=== PATIENT | male | born 1945 | race Caucasian/White ===

== ENCOUNTER 2016-07-14 00:22 | Emergency (ER) | payer MEDICARE, OTHER ==
--- NOTE | 2016-07-14 00:56 | EDM.PDOC ---
[id number] Complaint: [facility] Time Seen by Provider: 07/14/16 00:50 Source of Information: Reports: Patient History Limitations: Reports: No Limitations - History of Present Illness INITIAL COMMENTS - FREE TEXT/NARRATIVE: pt states abut 10 45 the pt began to have slurred speech and is having difficulty expressing himself/ He also noted that he had numbness in his rt arm and was having some difficulty coordinating his arm. Onset: Today, Sudden Duration: Hour(s):, Other ( started at 10 45) Location: Reports: Other ( speech wa affected and he had difficulty coordinating his rt arm. ) Associated Symptoms: Reports: Other (pt is having speech difficulty and he is having problems coordinating his rt arm. ) denies pain Pain Score (Numeric/FACES): 0 - Related Data Allergies Allergy/AdvReac Type Severity Reaction Status Date / Time codeine Allergy Headache Verified 07/14/16 00:35 hydroxyzine HCl Allergy Change Verified 07/14/16 00:35 [From Vistaril] Mental Status hydroxyzine pamoate Allergy Change Verified 07/14/16 00:35 [From Vistaril] Mental Status Home Meds: Home Meds ALPRAZolam [Alprazolam] 0.25 mg PO QAM 08/27/14 [History] Allopurinol [Zyloprim] 300 mg PO BEDTIME 08/27/14 [History] Aspirin [Eddie Chewable] 81 mg PO QAM 08/27/14 [History] Citalopram Hydrobromide [Celexa] 10 mg PO QAM 08/27/14 [History] Clopidogrel [Plavix] 75 mg PO BEDTIME 08/27/14 [History] Furosemide [Lasix] 40 mg PO QAM 08/27/14 [History] Metoprolol Tartrate [Lopressor] 50 mg PO BID 08/27/14 [History] Tamsulosin [Tamsulosin 24 Hr] 0.4 mg PO QAM 08/27/14 [History] atorvaSTATin [Lipitor] 80 mg PO BEDTIME 08/27/14 [History] Glimepiride [Glimepiride] 1 mg PO BID 08/21/15 [History] Levothyroxine [Synthroid] 100 mcg PO QAM 08/21/15 [History] Past Medical History Other HEENT History: hardache today recent again ? TIA Cardiovascular History: Reports: Arrhythmia, High Cholesterol, Hypertension, [place] , Stents Other Cardiovascular History: stunt x2 Other Gastrointestinal History: nausea Genitourinary History: Reports: Chronic Renal Insuffiency, Other (See Below) Other Genitourinary History: self cath 3X aday, stage 3 CKD Other Musculoskeletal History: L knee surgery L knee replacement Neurological History: Reports: CVA, TIA Other Neuro History: family member ? TIA one week ago Psychiatric History: Reports: Anxiety, Depression Endocrine/Metabolic History: Reports: Diabetes, Type II, Hypothyroidism, Obesity /BMI 30+ Oncologic (Cancer) History: Reports: Basal Cell Carcinoma Other Dermatologic History: skin cancer - Past Surgical History Cardiovascular Surgical History: Reports: Coronary Artery Stent Musculoskeletal Surgical History: Reports: Arthroscopic Knee, Other (See Below) Social & Family History - Tobacco Use Smoking Status *Q: Never Smoker - Recreational Drug Use Recreational Drug Use: No ED ROS GENERAL - Review of Systems Review Of Systems: See Below Constitutional: Reports: No Symptoms HEENT: Reports: No Symptoms Respiratory: Reports: No Symptoms Cardiovascular: Reports: No Symptoms Endocrine: Reports: No Symptoms GI/Abdominal: Reports: No Symptoms : Reports: No Symptoms Musculoskeletal: Reports: No Symptoms Skin: Reports: No Symptoms Neurological: Reports: Trouble Speaking, Change in Speech, Other ( some weakness in the rt arm) Psychiatric: Reports: No Symptoms ED EXAM, NEURO - Physical Exam Exam: See Below Text/Narrative:: pt has slurring of his speech and difficult time coming up with the words to express himself. Exam Limited By: No Limitations General Appearance: Alert, Anxious, Mild Distress, Other (pupils are equal and reactive. ) Ears: Normal External Exam Nose: Normal Inspection Throat/Mouth: Normal Inspection, Other ( pt has no facial deviation) Neck: Normal Inspection Respiratory/Chest: No Respiratory Distress Cardiovascular: Regular Rate, Rhythm GI/Abdominal: Soft, Non-Tender (Male) Exam: Deferred Rectal (Males) Exam: Deferred Neurological: Alert, Oriented x 3, Other (pt is slurring his words and can not express himself at times.e is having some weakness in the rt arm. ) Back Exam: Normal Inspection Extremities: Normal Inspection Psychiatric: Anxious Course - Vital Signs Last Recorded V/S: Last Vital Signs Temp 36.6 C 07/14/16 00:57 Pulse 74 07/14/16 01:35 Resp BP 142/76 H 07/14/16 01:35 Pulse Ox 97 07/14/16 01:35 - Orders/Labs/Meds Labs: Laboratory Tests 07/14/16 07/14/16 07/14/16 Range/Units 00:46 00:46 00:46 WBC 12.1 H (4.5-11.0) K/uL RBC 4.35 (4.30-5.90) M/uL Hgb 12.0 (12.0-15.0) g/dL Hct 37.7 L (40.0-54.0) % MCV 87 (80-98) fL MCH 28 (27-31) pg MCHC 32 (32-36) % Plt Count 231 (150-400) K/uL Neut % (Auto) 70 H (36-66) % Lymph % (Auto) 17 L (24-44) % [place] % (Auto) 8 H (2-6) % Eos % (Auto) 5 H (2-4) % Baso % (Auto) 0 (0-1) % APTT 29.9 (27.0-36.0) sec Sodium 142 (140-148) mmol/L Potassium 3.8 (3.6-5.2) mmol/L Chloride 106 (100-108) mmol/L Carbon Dioxide 25 (21-32) mmol/L Anion Gap 10.7 (5.0-14.0) mmol/L BUN 23 H (7-18) mg/dL Creatinine 1.8 H (0.8-1.3) mg/dL Est Cr Clr Drug Dosing 46.21 mL/min Estimated GFR (MDRD) 37 L (>60) Glucose 152 H (74-106) mg/dL Calcium 7.7 L (8.5-10.1) mg/dL Total Bilirubin 0.4 (0.2-1.0) mg/dL AST 26 (15-37) U/L ALT 41 (12-78) U/L Alkaline Phosphatase 171 H (46-116) U/L Troponin I (0.000-0.056) ng/mL Total Protein 6.2 L (6.4-8.2) g/dL Albumin 2.8 L (3.4-5.0) g/dL Globulin 3.4 (2.3-3.5) g/dL Albumin/Globulin Ratio 0.8 L (1.2-2.2) TSH, Ultra Sensitive (0.358-3.740) uIU/mL Urine Color Urine Appearance Urine pH (4.5-8.0) Ur Specific Holl[place] (1.008-1.030) Urine Protein (NEGATIVE) mg/dL Urine Glucose (UA) (NEGATIVE) mg/dL Urine Ketones (NEGATIVE) mg/dL Urine Occult Blood (NEGATIVE) Urine Nitrite (NEGAITVE) Urine Bilirubin (NEGATIVE) Urine Urobilinogen (NORMAL) mg/dL Ur Leukocyte Esterase (NEGATIVE) Urine RBC (0-5) Urine WBC (0-5) Ur Epithelial Cells Amorphous Sediment Urine Bacteria Urine Mucus 07/14/16 07/14/16 Range/Units 00:46 01:15 WBC (4.5-11.0) K/uL RBC (4.30-5.90) M/uL Hgb (12.0-15.0) g/dL Hct (40.0-54.0) % MCV (80-98) fL MCH (27-31) pg MCHC (32-36) % Plt Count (150-400) K/uL Neut % (Auto) (36-66) % Lymph % (Auto) (24-44) % [place] % (Auto) (2-6) % Eos % (Auto) (2-4) % Baso % (Auto) (0-1) % APTT (27.0-36.0) sec Sodium (140-148) mmol/L Potassium (3.6-5.2) mmol/L Chloride (100-108) mmol/L Carbon Dioxide (21-32) mmol/L Anion Gap (5.0-14.0) mmol/L BUN (7-18) mg/dL Creatinine (0.8-1.3) mg/dL Est Cr Clr Drug Dosing mL/min Estimated GFR (MDRD) (>60) Glucose (74-106) mg/dL Calcium (8.5-10.1) mg/dL Total Bilirubin (0.2-1.0) mg/dL AST (15-37) U/L ALT (12-78) U/L Alkaline Phosphatase (46-116) U/L Troponin I < 0.017 (0.000-0.056) ng/mL Total Protein (6.4-8.2) g/dL Albumin (3.4-5.0) g/dL Globulin (2.3-3.5) g/dL Albumin/Globulin Ratio (1.2-2.2) TSH, Ultra Sensitive 2.965 (0.358-3.740) uIU/mL Urine Color Yellow Urine Appearance Clear Urine pH 5.0 (4.5-8.0) Ur Specific [place] 1.010 (1.008-1.030) Urine Protein Negative (NEGATIVE) mg/dL Urine Glucose (UA) Normal (NEGATIVE) mg/dL Urine Ketones Negative (NEGATIVE) mg/dL Urine Occult Blood Negative (NEGATIVE) Urine Nitrite Negative (NEGAITVE) Urine Bilirubin Negative (NEGATIVE) Urine Urobilinogen Normal (NORMAL) mg/dL Ur Leukocyte Esterase Small (NEGATIVE) Urine RBC 0-5 (0-5) Urine WBC 5-10 H (0-5) Ur Epithelial Cells Rare Amorphous Sediment Few Urine Bacteria Moderate Urine Mucus Not seen Meds: Medications Discontinued Medications Generic Name Dose Route Start Last Admin Trade Name Kieranq PRN Reason Stop Dose Admin Lidocaine HCl 10 ml 07/14/16 01:00 07/14/16 01:03 Xylocaine 2% Jelly MUCMEM 07/14/16 01:01 10 ml ONETIME ONE Administration - Re-Assessments/Exams Free Text/Narrative Re-Assessment/Exam: 07/14/16 01:22 vitals seem stable, ekg does not show acute changes, cat scn of the head did not show acute changes. 07/15/16 07:45 pt is having some improvement in his speech after arival. His cat scan of the head did not show acute findings. he has had a previous stroke. Departure - Departure Time of Disposition: 01:24 Disposition: DC/Tfer to Acute Hospital 02 Condition: fair Clinical Impression: Stroke due to embolism - Discharge Information Referrals: PCP,None [Primary Care Provider] - Forms: ED Department Discharge Care Plan Goals: transfer to [facility] -- ER.
[2016-07-14] MEDS ORDERED: Lidocaine 2% Jelly 10 ML Urojet MUCMEM ONE (01:00)
[2016-07-14 01:36] VITALS: BP 142/76
== END 2016-07-14 01:55 ==
LOC: JP.ED 00:22
DX: I63.40 Cerebral infarction due to embolism of unspecified cerebral artery (principal); I12.9 Hypertensive chronic kidney disease with stage 1 through stage 4 chronic kidney disease, or unspecified chronic kidney disease; N18.3 Chronic kidney disease, stage 3 (moderate); E11.22 Type 2 diabetes mellitus with diabetic chronic kidney disease; I25.2 Old myocardial infarction; E78.00 Pure hypercholesterolemia, unspecified; E03.9 Hypothyroidism, unspecified; F41.9 Anxiety disorder, unspecified; F32.9 Major depressive disorder, single episode, unspecified; E66.9 Obesity, unspecified; Z68.30 Body mass index [BMI] 30.0-30.9, adult; Z88.5 Allergy status to narcotic agent; Z88.8 Allergy status to other drugs, medicaments and biological substances; Z79.82 Long term (current) use of aspirin; Z79.899 Other long term (current) drug therapy; Z95.5 Presence of coronary angioplasty implant and graft; Z96.652 Presence of left artificial knee joint; Z85.828 Personal history of other malignant neoplasm of skin
CPT/HCPCS: 36415; 51702; 70450; 80053; 81001; 84443; 84484; 85025; 85730; 93005; 93010; 99285; 99285-25

== ENCOUNTER 2019-08-18 17:56 | Emergency (ER) | payer MEDICARE, BC ==
[2019-08-18 19:19] VITALS: BP 163/72; PULSE 68
[2019-08-18] MEDS ORDERED: Silver Nitrate Applicator Each TOP ONE (19:46)
[2019-08-18] MEDS ORDERED: Bacitracin Oint 1 GM U/D Packet TOP ONE (19:48)
--- NOTE | 2019-08-18 19:53 | EDM.PDOC ---
ED HPI GENERAL MEDICAL PROBLEM - General Chief Complaint: Wound Recheck Stated Complaint: SMALL TOE RT FOOT BLEEDING Time Seen by Provider: 08/18/19 19:35 Source of Information: Reports: Patient History Limitations: Reports: No Limitations - History of Present Illness INITIAL COMMENTS - FREE TEXT/NARRATIVE: 74 yo male here with a skin tear to the top of his R 5th toe that has been oozing on and off for a couple days. Is on Plavix/ASA. Lives in area 6 mos/yr, but no local doctor. Onset: Gradual Onset Date: 08/16/19 Duration: Day(s): (2+), Intermittent Location: Reports: Lower Extremity, Right Quality: Reports: Dull Severity: Mild Improves with: Reports: None Worsens with: Reports: Other (unsure) Context: Reports: Trauma (skin tear) Associated Symptoms: Reports: No Other Symptoms Treatments [employer]: Reports: Other (see below) (none) - Related Data Allergies Allergy/AdvReac Type Severity Reaction Status Date / Time codeine AdvReac Headache Verified 08/18/19 19:08 hydroxyzine HCl AdvReac Change Verified 08/18/19 19:08 [From Vistaril] Mental Status hydroxyzine pamoate AdvReac Change Verified 08/18/19 19:08 [From Vistaril] Mental Status Home Meds: Home Meds ALPRAZolam [Alprazolam] 0.25 mg PO QAM 08/27/14 [History] Aspirin [Eddie Chewable] 81 mg PO QAM 08/27/14 [History] Citalopram Hydrobromide [Celexa] 10 mg PO QAM 08/27/14 [History] Clopidogrel [Plavix] 75 mg PO BEDTIME 08/27/14 [History] Metoprolol Tartrate [Lopressor] 50 mg PO BID 08/27/14 [History] Tamsulosin [Tamsulosin 24 Hr] 0.4 mg PO QAM 08/27/14 [History] allopurinoL [Zyloprim] 300 mg PO BEDTIME 08/27/14 [History] atorvaSTATin [Lipitor] 10 mg PO BEDTIME 08/27/14 [History] Levothyroxine [Synthroid] 100 mcg PO QAM 08/21/15 [History] Ascorbic Acid 500 mg PO DAILY 08/18/19 [History] Cholecalciferol (Vitamin D3) [Vitamin D3] 1,000 unit PO DAILY 08/18/19 [History] Glimepiride 4 mg PO DAILY 08/18/19 [History] Insulin Glarg,Human.Rec.Analog [Lantus Solostar] 100 unit SQ DAILY 08/18/19 [History] Magnesium Oxide 400 mg PO DAILY 08/18/19 [History] Tadalafil [Cialis] 20 mg PO DAILY 08/18/19 [History] Past Medical History HEENT History: Reports: Impaired Vision Other HEENT History: hardache today recent again ? TIA Cardiovascular History: Reports: Arrhythmia, High Cholesterol, Hypertension, [place], Stents Other Cardiovascular History: stunt x2 Respiratory History: Reports: None Gastrointestinal History: Reports: Other (See Below) Other Gastrointestinal History: nausea Genitourinary History: Reports: Chronic Renal Insuffiency, Other (See Below) Other Genitourinary History: self cath 3X aday, stage 3 CKD Musculoskeletal History: Reports: Other (See Below) Other Musculoskeletal History: L knee surgery L knee replacement Neurological History: Reports: CVA, TIA Other Neuro History: family member ? TIA one week ago Psychiatric History: Reports: Anxiety, Depression Endocrine/Metabolic History: Reports: Diabetes, Type II, Hypothyroidism, Obesity/BMI 30+ Hematologic History: Reports: None Immunologic History: Reports: None Oncologic (Cancer) History: Reports: Basal Cell Carcinoma Dermatologic History: Reports: Other (See Below) Other Dermatologic History: skin cancer - Infectious Disease History Infectious Disease History: Reports: Chicken Pox, Measles, Mumps - Past Surgical History Cardiovascular Surgical History: Reports: Coronary Artery Stent GI Surgical History: Reports: Appendectomy Musculoskeletal Surgical History: Reports: Arthroscopic Knee, Other (See Below) Social & Family History - Tobacco Use Smoking Status *Q: Never Smoker - Caffeine Use Caffeine Use: Reports: Soda Caffeine Use Comment: diet coke - Recreational Drug Use Recreational Drug Use: No ED ROS GENERAL - Review of Systems Review Of Systems: See Below Constitutional: Reports: No Symptoms Skin: Reports: Wound (skin tear to dorsal R 5th toe distally.) Neurological: Reports: No Symptoms ED EXAM, SKIN/RASH Exam: See Below Exam Limited By: No Limitations General Appearance: Alert, WD/WN, No Apparent Distress Extremities: Normal Inspection, Normal Range of Motion, Non-Tender, No Pedal Edema Neurological: Alert, Oriented, CN II-XII Intact, Normal Cognition, No Motor/Sensory Deficits Psychiatric: Normal Affect, Normal Mood Skin: Warm, Dry, Normal Color, No Rash, Wound/Incision (0.5 x 0.5 cm skin tear to dorsum of the R 5th toe distally. No active bleeding now. ) Location, Skin: Lower Extremity, Right Characteristics: No: Erythematous Associated features: No: Tenderness, Lymphangitis ED WOUND PROCEDURES - Additional/Other Procedure(s) Other (Free Text) Procedure(s): Cauterized the R 5th toe with silver nitrate. Dressing with Bacitracin per RN. Course - Vital Signs Last Recorded V/S: Last Vital Signs Temp 36.9 C 08/18/19 19:23 Pulse 68 08/18/19 19:14 Resp 14 08/18/19 19:14 BP 163/72 H 08/18/19 19:14 Pulse Ox 97 08/18/19 19:14 - Orders/Labs/Meds Meds: Medications Discontinued Medications Generic Name Dose Route Start Last Admin Trade Name Celina PRN Reason Stop Dose Admin Silver Nitrate 1 each 08/18/19 19:46 Silver Nitrate TOP 08/18/19 19:47 ONETIME ONE Departure - Departure Time of Disposition: 20:02 Disposition: Home, Self-Care 01 Condition: Good Clinical Impression: Bleeding from wound - Discharge Information *PRESCRIPTION DRUG MONITORING PROGRAM REVIEWED*: Not Applicable *COPY OF PRESCRIPTION DRUG MONITORING REPORT IN PATIENT HENRI: Not Applicable Referrals: PCP,None [Primary Care Provider] - Additional Instructions: Leave dressing on for 24 hrs. After this change dressing twice daily. Elevate and apply direct pressure if bleeding recurs. Recheck in the clinic as needed, ? [place] may have an [facility] during the day for you to follow up at. Sepsis Event Note (ED) - Evaluation Sepsis Screening Result: No Definite Risk - Focused Exam Vital Signs: Vital Signs Temp Pulse Resp BP Pulse Ox 08/18/19 19:23 36.9 C 08/18/19 19:14 68 14 163/72 H 97
== END 2019-08-18 20:11 | disposition home or self-care (01) ==
LOC: JP.ED 17:56
DX: S91.114A Laceration without foreign body of right lesser toe(s) without damage to nail, initial encounter (principal); E03.9 Hypothyroidism, unspecified; E11.22 Type 2 diabetes mellitus with diabetic chronic kidney disease; E78.00 Pure hypercholesterolemia, unspecified; I12.9 Hypertensive chronic kidney disease with stage 1 through stage 4 chronic kidney disease, or unspecified chronic kidney disease; N18.3 Chronic kidney disease, stage 3 (moderate); I25.2 Old myocardial infarction; F41.9 Anxiety disorder, unspecified; F32.9 Major depressive disorder, single episode, unspecified; Z79.82 Long term (current) use of aspirin; E66.9 Obesity, unspecified; Z79.02 Long term (current) use of antithrombotics/antiplatelets; Z88.5 Allergy status to narcotic agent; Z88.8 Allergy status to other drugs, medicaments and biological substances; Z79.899 Other long term (current) drug therapy; Z95.5 Presence of coronary angioplasty implant and graft; Z86.73 Personal history of transient ischemic attack (TIA), and cerebral infarction without residual deficits; Z79.4 Long term (current) use of insulin; Z68.34 Body mass index [BMI] 34.0-34.9, adult; X58.XXXA Exposure to other specified factors, initial encounter
CPT/HCPCS: 12001; 99282

== ENCOUNTER 2021-10-28 13:41 | Emergency (ER) | payer MEDICARE, BC ==
[2021-10-28 13:59] VITALS: BP 117/66; PULSE 67
== END 2021-10-28 15:33 | disposition home or self-care (01) ==
LOC: JP.ED 13:41
DX: S60.222A Contusion of left hand, initial encounter (principal); E78.00 Pure hypercholesterolemia, unspecified; I10 Essential (primary) hypertension; I25.2 Old myocardial infarction; E11.9 Type 2 diabetes mellitus without complications; E66.9 Obesity, unspecified; Z68.30 Body mass index [BMI] 30.0-30.9, adult; Z91.018 Allergy to other foods; Z88.5 Allergy status to narcotic agent; Z88.8 Allergy status to other drugs, medicaments and biological substances; Z79.899 Other long term (current) drug therapy; Z79.82 Long term (current) use of aspirin; Z79.4 Long term (current) use of insulin; Z90.49 Acquired absence of other specified parts of digestive tract; W18.39XA Other fall on same level, initial encounter
CPT/HCPCS: 73110-LT; 99283

== ENCOUNTER 2024-09-28 06:21 | Emergency (ER) | payer MEDICARE, BC ==
[2024-09-28 06:53] VITALS: BP 97/43; PULSE 68
[2024-09-28 07:24] LABS: BASOPHILS ABSOLUTE AUTO 0.07 K/uL (0.00-0.10); BASOPHILS PERCENT AUTO 0.6 % (0.1-1.3); EOSINOPHILS ABSOLUTE AUTO 0.32 K/uL (0.00-0.40); EOSINOPHILS PERCENT AUTO 2.9 % (0.0-5.4); IMMATURE GRAN ABSOLUTE AUTO 0.07 K/uL (0.00-0.23); IMMATURE GRAN PERCENT AUTO 0.6 % (0.0-0.7); LYMPHOCYTES ABSOLUTE AUTO 1.46 K/uL (0.8-3.3); LYMPHOCYTES PERCENT AUTO 13.1 % (11.4-47.7); MONOCYTES ABSOLUTE AUTO 0.93 K/uL (0.20-0.90); MONOCYTES PERCENT AUTO 8.4 % (3.3-12.6); NEUTROPHILS ABSOLUTE AUTO 8.27 K/uL (1.0-7.6); NEUTROPHILS PERCENT AUTO 74.4 % (40.0-78.1); PLATELET COUNT,PLT 207 K/uL (130-375); RED BLOOD CELL COUNT 4.56 M/uL (4.14-5.76); WHITE BLOOD CELL COUNT,WBC 11.1 K/uL (3.2-11.0)
[2024-09-28 07:45] LABS: INR 1.0
[2024-09-28 07:57] LABS: A/G RATIO 1.0 (1.2-2.2); ALANINE AMINOTRANSFERASE,ALT 19 U/L (12-78); ASPARTATE AMNIOTRANSFERASE,AST 15 U/L (15-37); BILIRUBIN TOTAL 0.7 mg/dL (0.2-1.0); BLOOD UREA NITROGEN,BUN 28 mg/dL (7-18); CARBON DIOXIDE,CO2 29 mmol/L (21-32); CHLORIDE,CL 102 mmol/L (100-108); CREATININE 1.9 mg/dL (0.8-1.3); ESTIMATED GFR 35 mL/min (>60); GLUCOSE RANDOM 283 mg/dL (74-106); POTASSIUM,K 4.1 mmol/L (3.6-5.2); PROTEIN TOTAL,TP 6.5 g/dL (6.4-8.2); SODIUM,NA 139 mmol/L (140-148)
[2024-09-28 07:58] LABS: CREATINE KINASE,CK 71.0 U/L (39-308); T4 FREE 0.99 ng/dL (0.76-1.46); TROPONIN I HIGH SENSITIVITY 18.3 pg/mL (<=60.3); TSH ULTRASENSITIVE 3.157 uIU/mL (0.358-3.740)
[2024-09-28] MEDS: Bacitracin Oint 1 GM U/D Packet TOP ONE (08:14)
[2024-09-28 08:20] LABS: APPEARANCE,URINE TURBID (CLEAR); GLUCOSE,URINE 500 mg/dL (NEGATIVE); OCCULT BLOOD,URINE SMALL (NEGATIVE)
[2024-09-28 08:37] LABS: SQUAMOUS EPITHELIAL CELLS,UR NOT SEEN /HPF; UROTHELIAL CELLS,URINE NOT SEEN /HPF
== END 2024-09-28 09:15 | disposition home or self-care (01) ==
LOC: JP.ED 06:21
DX: S91.202A Unspecified open wound of left great toe with damage to nail, initial encounter (principal); N39.0 Urinary tract infection, site not specified; I25.10 Atherosclerotic heart disease of native coronary artery without angina pectoris; I25.2 Old myocardial infarction; E11.22 Type 2 diabetes mellitus with diabetic chronic kidney disease; N18.9 Chronic kidney disease, unspecified; E03.9 Hypothyroidism, unspecified; E66.9 Obesity, unspecified; Z90.49 Acquired absence of other specified parts of digestive tract; Z95.5 Presence of coronary angioplasty implant and graft; Z88.5 Allergy status to narcotic agent; Z88.8 Allergy status to other drugs, medicaments and biological substances; Z91.018 Allergy to other foods; Z79.82 Long term (current) use of aspirin; Z79.4 Long term (current) use of insulin; Z79.890 Hormone replacement therapy; Z79.899 Other long term (current) drug therapy; W19.XXXA Unspecified fall, initial encounter
CPT/HCPCS: 36415; 73620; 80053; 81001; 82550; 84439; 84443; 84484; 85025; 85610; 87086; 93005; 99284; C1758; 87088; 87186

== ENCOUNTER 2024-11-08 12:46 | Emergency (ER) | payer MEDICARE, BC ==
[2024-11-08 14:25] LABS: APPEARANCE,URINE TURBID (CLEAR); GLUCOSE,URINE 500 mg/dL (NEGATIVE); OCCULT BLOOD,URINE LARGE (NEGATIVE)
[2024-11-08 14:39] LABS: SQUAMOUS EPITHELIAL CELLS,UR RARE /HPF; UROTHELIAL CELLS,URINE NOT SEEN /HPF
[2024-11-08 15:14] VITALS: BP 158/78; PULSE 79
[2024-11-08 15:27] LABS: BASOPHILS ABSOLUTE AUTO 0.06 K/uL (0.00-0.10); BASOPHILS PERCENT AUTO 0.5 % (0.1-1.3); EOSINOPHILS ABSOLUTE AUTO 0.38 K/uL (0.00-0.40); EOSINOPHILS PERCENT AUTO 3.1 % (0.0-5.4); IMMATURE GRAN ABSOLUTE AUTO 0.05 K/uL (0.00-0.23); IMMATURE GRAN PERCENT AUTO 0.4 % (0.0-0.7); LYMPHOCYTES ABSOLUTE AUTO 1.18 K/uL (0.8-3.3); LYMPHOCYTES PERCENT AUTO 9.6 % (11.4-47.7); MONOCYTES ABSOLUTE AUTO 0.82 K/uL (0.20-0.90); MONOCYTES PERCENT AUTO 6.7 % (3.3-12.6); NEUTROPHILS ABSOLUTE AUTO 9.75 K/uL (1.0-7.6); NEUTROPHILS PERCENT AUTO 79.7 % (40.0-78.1); PLATELET COUNT,PLT 199 K/uL (130-375); RED BLOOD CELL COUNT 4.64 M/uL (4.14-5.76); WHITE BLOOD CELL COUNT,WBC 12.2 K/uL (3.2-11.0)
[2024-11-08 15:43] LABS: BLOOD UREA NITROGEN,BUN 24 mg/dL (7-18); CARBON DIOXIDE,CO2 28 mmol/L (21-32); CHLORIDE,CL 100 mmol/L (100-108); CREATININE 1.6 mg/dL (0.8-1.3); ESTIMATED GFR 44 mL/min (>60); GLUCOSE RANDOM 285 mg/dL (74-106); POTASSIUM,K 3.9 mmol/L (3.6-5.2); SODIUM,NA 137 mmol/L (140-148)
== END 2024-11-08 16:53 | disposition home or self-care (01) ==
LOC: JP.ED 12:46
DX: N40.1 Benign prostatic hyperplasia with lower urinary tract symptoms (principal); N13.8 Other obstructive and reflux uropathy; N39.0 Urinary tract infection, site not specified; I25.10 Atherosclerotic heart disease of native coronary artery without angina pectoris; I25.2 Old myocardial infarction; I12.9 Hypertensive chronic kidney disease with stage 1 through stage 4 chronic kidney disease, or unspecified chronic kidney disease; N18.30 Chronic kidney disease, stage 3 unspecified; E11.22 Type 2 diabetes mellitus with diabetic chronic kidney disease; E03.9 Hypothyroidism, unspecified; Z91.048 Other nonmedicinal substance allergy status; Z88.5 Allergy status to narcotic agent; Z86.73 Personal history of transient ischemic attack (TIA), and cerebral infarction without residual deficits; Z88.8 Allergy status to other drugs, medicaments and biological substances; Z79.82 Long term (current) use of aspirin; Z79.899 Other long term (current) drug therapy; Z79.02 Long term (current) use of antithrombotics/antiplatelets; Z79.4 Long term (current) use of insulin
CPT/HCPCS: 36415; 51702; 80048; 81001; 83605; 85025; 87086; 87088; 87186; 99283; 99284